=== PATIENT | female | born 1995 | race Caucasian/White ===

== ENCOUNTER → 2022-06-25 20:33 | Outpatient (ROUT) | payer OTHER, SELFPAY ==
[2022-06-25 21:16] LABS: HCG Quantitative /Beta subunit 7866.1 mIU/mL
== END ==
PROVIDERS: Visit Provider Advanced Practice Midwife
DX: N91.2 Amenorrhea, unspecified (principal)
CPT/HCPCS: 84702

== ENCOUNTER → 2023-01-13 07:35 | Outpatient (CLI) | payer OTHER, SELFPAY ==
--- NOTE | 2023-01-13 | DI.US.S_ITS ---
PROCEDURE: US OB >= 14 WEEKS FETUS INDICATIONS: 20 WEEK ANATOMY OUTSIDE/PRIOR DATING DATA: Last menstrual period (LMP): 08/23/2022. LMP-based estimated date of delivery (VIDAL): 05/30/2023 First dating scan (date and location): 01/13/2023. Estimated date of delivery (VIDAL) from first dating scan: 05/29/2023. TECHNIQUE: Real-time scanning was performed of the fetus, with image documentation and biometric measurements. COMPARISON: None. FINDINGS: General: A single living intrauterine gestation is present. Presentation: Vertex. Placenta: Placental position is anterior , without previa. Amniotic fluid index: 11.9 cm, normal range is 5-24 cm. Single deepest vertical pocket is 3.8 cm. heart rate: 141 beats per minute. Maternal cervical canal: 4.6 cm long. Normal lower limit is 2.5 cm. biometrics: Biparietal diameter: 4.9 centimeters, 20 weeks and 5 days Head circumference: 17.7 centimeters, 20 weeks and 1 day Abdominal circumference: 16 centimeters, 21 weeks and 1 day Femur length: 3.3 centimeters, 20 weeks and 2 days Clinically estimated gestational age: 20 weeks and 3 days Composite gestational age from present scan: 20 Weeks and 4 days Estimated weight and percentile: 370 grams, 60th percentile. Anatomic survey: Neuro: Ventricles are non-dilated at less than 10 mm. Cisterna magna is normal at 3-11 mm. Cerebellum is normal in size and morphology. Nuchal skin fold: Normal at less than 6 mm between 14-21 weeks gestational age. Face: Not well seen Spine: No evidence for spina bifida. Heart: 4-chambered heart is present. Outflow tracts are not well seen. Diaphragm: Diaphragm is intact. Stomach: Left-sided stomach is present. Kidneys: No hydronephrosis. Normal is less than 5 mm in 2nd trimester, less than 7 mm in 3rd trimester. Cord: 3-vessel cord has orthotopic insertion. Bladder: Normal in size. Extremities: All 4 extremities identified. IMPRESSION: Outflow tracts of the heart and facial structures are not well seen. Otherwise unremarkable anatomic survey. Recommend follow-up survey. Living intrauterine gestation at 20 weeks and 3 days, measuring at the 60th percentile. Dictated by: Etienne Childress M.D. on 01/13/2023 at 12:35 Approved by: Etienne Childress M.D. on 01/13/2023 at 12:40
== END ==
PROVIDERS: Referring Provider Nurse Practitioner Obstetrics & Gynecology; Visit Provider Nurse Practitioner Obstetrics & Gynecology
DX: Z34.92 Encounter for supervision of normal pregnancy, unspecified, second trimester (principal); Z3A.20 20 weeks gestation of pregnancy
CPT/HCPCS: 76811

== ENCOUNTER → 2023-01-21 16:20 | Outpatient (CLI) | payer OTHER, SELFPAY ==
--- NOTE | 2023-01-21 | DI.US.S_ITS ---
PROCEDURE: US OB FOLLOW UP INDICATIONS: FOLLOW UP ANATOMY SCAN OUTSIDE/PRIOR DATING DATA: Last menstrual period (LMP): August 23, 2022. LMP-based estimated date of delivery (VIDAL): May 30, 2023. First dating scan (date and location): January 13, 2023. Estimated date of delivery (VIDAL) from first dating scan: May 29, 2023. The calculations are made using the clinical VIDAL of May 30, 2023. TECHNIQUE: Real-time scanning was performed of the fetus, with image documentation. Endovaginal scanning: Not performed COMPARISON: [facility], OB >= 14 WEEKS FETUS, 01/13/2023, 7:53. FINDINGS: A single living intrauterine gestation is present. Presentation: Transverse maternal left. Placenta: Placental position is anterior right, without previa. Amniotic fluid index: 11.7 cm, normal range is 5-24 cm. Single deepest vertical pocket is 3.7 cm. heart rate: 153 beats per minute. Maternal cervical canal: 4.9 cm long. Normal lower limit is 2.5 cm. Clinically estimated gestational age: 21 weeks and 4 days Other: Re-evaluation of the ventricular outflow tracts, nose and lips, and facial profile are within normal limits. IMPRESSION: Single living intrauterine gestation with estimated gestational age of approximately 21 weeks and 4 days. Normal sonographic appearance of the ventricular outflow tracts, nose and lips, and facial profile. Dictated by: Evaristo Austin M.D. on 01/22/2023 at 10:42 Approved by: Evaristo Austin M.D. on 01/22/2023 at 10:48
== END ==
PROVIDERS: Referring Provider Advanced Practice Midwife; Visit Provider Advanced Practice Midwife
DX: Z3A.21 21 weeks gestation of pregnancy; Z36.2 Encounter for other antenatal screening follow-up
CPT/HCPCS: 76816

== ENCOUNTER → 2023-03-10 16:33 | Outpatient (CLI) | payer OTHER, SELFPAY ==
[2023-03-10 17:57] LABS: Hematocrit 39.5 % (36-46); Mean Corpuscular HGB Conc 35.4 % (30-36); Mean Corpuscular Hemoglobin 32.9 PG (26-34); Platelet Count 198 X10^3/uL (150-400); Red Blood Cell Count 4.24 X10^6/uL (4.0-5.2); White Blood Cell Count 10.1 X10^3/uL (4.5-11.0)
== END ==
PROVIDERS: Referring Provider Nurse Practitioner Obstetrics & Gynecology; Visit Provider Nurse Practitioner Obstetrics & Gynecology
DX: Z34.90 Encounter for supervision of normal pregnancy, unspecified, unspecified trimester (principal); Z3A.28 28 weeks gestation of pregnancy
CPT/HCPCS: 36415; 85027

== ENCOUNTER 2023-05-21 16:16 | Inpatient (IN) | payer OTHER, SELFPAY ==
--- NOTE | 2023-05-21 16:39 | PM.OBHP.1 ---
OB HPI Date/Time Date of admission: 05/21/23 Date Patient Seen: 05/21/23 Time Patient Seen: 16:39 History of Present Condition Chief complaint: LABOR : 2 Para: 0 Estimated Date of Delivery: 05/30/23 Estimated Gestational Age (weeks): 38.5 Narrative: Ellie Ríos is a 27 year old female @ 38wks 5 days by LMP concordant with 12wk US who presents for evaluation of PROM. Awoke from a nap at 1515 with leaking fluid that has continued to leak since. Some pink in the fluid, otherwise clear. +FM since ROM. No cramping. Uncomplicated PN care w/ CNMs. Planning and epidural. is deployed to [facility], parents to provide support. Patient arrived on unit actively leaking clear fluid, pants soaked. History of Present care: good care, initiated at week # (12), number of visits (8) and pounds weight gain (48) Dating criteria: LMP confirmed by 1st trimester US Ultrasounds: normal mid trimester US Obstetrical complications: none Medical complications: none Preadmission Labs Blood type: A (+) positive -: Antibody screen: negative, Cystic fibrosis screen: negative, GBS status: negative, HBsAG: negative, HIV: negative and RPR/VDLR: negative -: Chlamydia screen: not detected and Gonorrhea screen: not detected -: Rubella: immune and Varicella: immune HCT: 39.5 HCAB: negative PAP: Normal Cell-free DNA: Negative 1 hr GTT: 104 Prior (ies) History: SAB x1 Evaluation Evaluation Baseline heart rate: 140 Variability: Moderate (11-25) monitor accelerations: Present Monitor Decelerations: Absent Contraction Frequency (minutes): 0 Comments: CE deferred, gross ROM (clear) PFSH Medical History (Updated 05/21/23 @ 16:55 by Jazmine Price CNM) Anxiety Family History (Updated 05/21/23 @ 16:55 by Jazmine Price CNM) Mother Depression Social History Smoking Status: Never smoker Meds Home Medications and Allergies Home Medications Medication Instructions Recorded Confirmed Type No Known Home Medications 05/21/23 05/21/23 History Allergies Allergy/AdvReac Type Severity Reaction Status Date / Time No Known Drug Allergies Allergy Verified 05/21/23 17:14 Review of Systems Review of Systems ROS: Yes All systems reviewed with the patient and are negative except as otherwise documented OB Exam Vital signs Blood Pressure: 120/61 Pulse Rate: 108 Temperature: 96.6 F Resp Effort & Inspection: normal respiratory effort and able to speak in complete sentences Auscultation: clear to auscultation bilaterally Cardio Rate: regular rate Rhythm: regular rhythm Heart Sounds: S1 normal and S2 normal Presentation: vertex Objective Labs 05/21/23 17:25 Assessment and Plan Assessment and Plan Assessment and Plan narrative: A: Term nullipara Not in labor PROM x 2 hours without sx of infection No indication for GBS prophylaxis Cat I FHR P: Counseled on options for active vs expectant management of PROM and patient elects active management. Admit, routine orders with pitocin. Labor support PRN. Epidural when requested. CE after 2 hours of strong contractions. Reassessin 4-6 hours or sooner, PRN.
[2023-05-21 16:59] VITALS: BP 120/61
[2023-05-21 17:13] VITALS: PULSE 108; TEMP 35.9
[2023-05-21 17:40] LABS: Add Manual Diff / Slide Review NO; Basophils Absolute Auto 100 /uL (0-100); Basophils Percent Auto 0.7 % (0-2); Eosinophils Absolute Auto 0 /uL (0-450); Eosinophils Percent Auto 0.6 % (2-4); Hematocrit 38.9 % (36-46); Hemoglobin 13.3 g/dL (12.0-16.0); Lymphocytes Absolute Auto 1500 /uL (1100-4500); Lymphocytes Percent Auto 17.3 % (25-40); Mean Corpuscular HGB Conc 34.3 % (30-36); Mean Corpuscular Hemoglobin 32.2 PG (26-34); Mean Corpuscular Volume 93.8 fL (80-100); Monocytes Absolute Auto 500 /uL (0-900); Monocytes Percent Auto 6.2 % (3-14); Neutrophils Absolute Auto 6400 /uL (1500-7000); Neutrophils Percent Auto 75.2 % (50-75); Platelet Count 193 X10^3/uL (150-400); Red Blood Cell Count 4.15 X10^6/uL (4.0-5.2); Red Cell Distribution Width 14.8 % (11.6-14.8); White Blood Cell Count 8.5 X10^3/uL (4.5-11.0)
[2023-05-21 19:19] VITALS: BP 120/77
[2023-05-21] MEDS: LACTATED RINGERS 1,000 ML 100 ML IV (19:59)
[2023-05-21] MEDS: OXYTOCIN PREMIX 30 UNIT/500 ML PLAST..BAG IV (20:01)
--- NOTE | 2023-05-21 22:33 | P.PNOB_ITS ---
Date/Time Date Patient Seen: 05/21/23 Time Patient Seen: 22:34 Pain Control Pain control: tolerating well Comments: Sitting up in bed doing her homework. Continues to leak clear fluid. Pitocin was delayed until medical laboratory specialist allowed initiation at 1999. Now feeling mild, regular contractions described as period like. was able o book flight arriving at [place] at 5pm tomorrow. Her mother arrives at 3-4 pm tomorrow. VS: BP 130/84, HR 96, T 35.9C Temporal Pelvic Exam Amniotic membrane status: Leaking (clear) Comments: CE deferred until more active labor Cephalic presentation was re-confirmed by bedside ultrasound prior to pitocin initiation. Contractions Monitor mode: External Pitocin rate (mU/min): 8 Contraction frequency (min): 2 Contraction duration (min): 1 Contraction pattern: Regular Contraction intensity: Mild Status status: Category l Heart Rate Baseline: 140 Monitor Accelerations: Present Monitor Decelerations: Absent Assessment and Plan Assessment: other (PROM x 7 hours without sx of infection) Comments: Continue active management of PROM. Pitocin titration to adequate contractions. Labor support, PRN. Epidural when requested. CE after 2 hours of strong contractions. Reassess in 4-6 hours or sooner, PRN.
[2023-05-22] MEDS: fentaNYL 100 MCG/2 ML INJ IV (01:06)
--- NOTE | 2023-05-22 02:53 | PM.ANES.PR ---
Operative Date/Time/Diagnoses Date of procedure: 05/22/23 Time of procedure: 02:23 Pre-op diagnosis: Labor pain Post-op diagnosis: same Note requesting labor epidural for labor pain
--- NOTE | 2023-05-22 02:54 | PM.AN.REGBLK ---
Regional Block Pre-procedure Procedure: Continuous Lumbar Epidural for L&D Attending OB provider: Jazmine Price PMH/ROS narrative: requesting labor epidural for labor pain Hx: No personal or family history of anesthesia problems. Exam narrative: Mallampati 2, good neck ROM ASA Class: II Labs: Hct 38.9 % (36-46) 05/21/23 17:25 Plt Count 193 X10^3/uL (150-400) 05/21/23 17:25 Medications: Current Medications Generic Name Dose Route Start Last Admin Trade Name Freq PRN Reason Stop Dose Admin Calcium Carbonate 1,000 mg 05/21/23 16:32 Calcium Carbonate 500 Mg Tab PO Q4HR PRN Dyspepsia Carboprost Tromethamine 250 mcg 05/21/23 16:32 Carboprost 250 Mcg/Ml Ampul IM Q90M PRN Bleeding Fentanyl 100 mcg 05/21/23 16:32 05/22/23 01:06 Fentanyl 100 Mcg/2 Ml Inj IV 50 mcg Q1H PRN Administration Pain, Severe (7-10) Oxytocin/Lactated Ringer's 30 unit in 500 mls @ 200 mls/hr 05/21/23 16:32 Oxytocin Premix IV CONT PRN Bleeding Protocol Tranexamic Acid 1,000 mg/ 100 mls @ 200 mls/hr 05/21/23 16:32 Sodium Chloride IV NOW PRN Bleeding Oxytocin/Lactated Ringer's 30 unit in 500 mls @ 2 mls/hr 05/21/23 16:45 05/21/23 20:01 Oxytocin Premix IV 2 milliunit/min TITRATE GEOVANNA 2 mls/hr Administration Protocol 2 MILLIUNIT/MIN Lactated Ringer's 1,000 mls @ 100 mls/hr 05/21/23 16:45 05/21/23 19:59 Lactated Ringers IV 100 mls/hr CONT GEOVANNA Administration Lidocaine HCl 20 ml 05/21/23 16:32 Lidocaine 1% 20 Ml INJ INTRA-OP PRN Post Delivery Methylergonovine Maleate 0.2 mg 05/21/23 16:32 Methylergonovine 0.2 Mg Tablet PO Q6HR PRN Heavy Bleeding Methylergonovine Maleate 0.2 mg 05/21/23 16:32 Methylergonovine 0.2 Mg/Ml Vial IM NOW PRN Bleeding Misoprostol 800 mcg 05/21/23 16:32 Misoprostol 200 Mcg Tablet OH NOW PRN Bleeding Misoprostol 400 mcg 05/21/23 16:32 Misoprostol 200 Mcg Tablet SL NOW PRN Bleeding Naloxone HCl 0.2 mg 05/21/23 16:32 Naloxone 0.4 Mg/Ml Vial IV Q2MIN PRN Opiate Reversal Ondansetron HCl 4 mg 05/21/23 16:32 Ondansetron 4 Mg/2 Ml Inj IV Q4HR PRN Nausea And Vomiting Oxytocin 10 unit 05/21/23 16:32 Oxytocin 10 Unit/Ml Vial IM NOW PRN Bleeding Allergies: Allergies Allergy/AdvReac Type Severity Reaction Status Date / Time No Known Drug Allergies Allergy Verified 05/21/23 17:14 Procedure Insertion date: 05/22/23 Insertion time: 02:27 Prep/Local: 1% lidocaine (Chloroprep, + sterile gloves, drape and technique) Interspace: L4-5 Patient position: sitting Needle: 18 gauge Hustead Loss of resistance with: saline JOY at (cm): 6 Catheter placed at SKIN (cm): 10 Catheter in SPACE (cm): 4 Sensory level: T10 Insertion: No CSF, No Blood, No Paresthesia with insertion, No Paresthesia with injection and No Test dose reaction Initial Medications TEST DOSE time: 02:33 TEST DOSE: 1.5% lidocaine with epinephrine 1:200k (mL): 5 BOLUS DOSE time: 02:34 BOLUS DOSE (mL): 5 BOLUS DOSE med: other (2% Lidocaine) Infusion INFUSION: 0.125% bupivacaine and with fentanyl 2 mcg/mL Initial rate (mL/hr): 10 Subsequent interventions: 03:45- Pt c/o pain in right lower quadrant, epidural remains at 10cm @ skin. Epidural bolus given ( 100mcg fentanyl + 6 cc 0.25% Bupivacaine); rate also inc to 12 ml/hr Post-procedure Anesthesia time START: 02:27 Anesthesia time END: 07:58 Post-procedure Anesthesia Assessment: Yes CV function: HR/BP stable, Yes Resp function: RR/sat/airway adequate, Yes Post-op hydration adequate, Yes Pain control adequate, Yes Nausea & vomiting absent, Yes Temperature > 36 C and Yes Mental status appropriate
--- NOTE | 2023-05-22 03:13 | PM.OBPNLAB ---
Date/Time Date Patient Seen: 05/22/23 Time Patient Seen: 03:13 Pain Control Pain control: epidural Comments: Contractions became stronger around 11pm. She requested and received an epidural around 2:30pm. Epidural is unequal with relief greater on the left. Continues to leak clear fluid. VS: BP 133/63, HR 105, T 36.1C Temporal Pelvic Exam Dilation (cm): 2 Effacement (%): 80 station: -2 Amniotic membrane status: Leaking (clear) Contractions Monitor mode: External Pitocin rate (mU/min): 10 Contraction frequency (min): 2 Contraction pattern: Regular Contraction intensity: Mild Status status: Category l Heart Rate Baseline: 135 Monitor Accelerations: Present Monitor Decelerations: Absent Assessment and Plan Assessment: other (PROM x 12 hours without sx of infection) Plan: continuous present management Comments: Reassess in 4 hours or sooner, PRN.
[2023-05-22] MEDS: FENT 2MCG/ML BUPIV 0.1% EPI 200 MCG/100 ML PLAST..BAG 6 MCG EPIDURAL (03:43)
[2023-05-22] MEDS: LACTATED RINGERS 1,000 ML 100 ML IV (03:44)
--- NOTE | 2023-05-22 07:27 | PM.OBPNLAB ---
Date/Time Date Patient Seen: 05/22/23 Time Patient Seen: 07:15 Pain Control Pain control: epidural Comments: Ellie is resting on her R side, starting to feel more contraction pain in lower abdomen bilaterally. She was able to get good sleep in the last few hours. VS: BP: 129/68 bpm, HR: 108, Sp02: 99%, T: 36.5C Pelvic Exam Dilation (cm): 10 Effacement (%): 100 station: +1 Amniotic membrane status: Leaking (clear) Contractions Monitor mode: External Pitocin rate (mU/min): 12 Contraction frequency (min): 2 Contraction duration (min): 1 Contraction pattern: Regular Contraction intensity: Strong/Firm Status status: Category l Heart Rate Baseline: 135 Monitor Accelerations: Present Monitor Decelerations: Absent Monitor Variability: Moderate Assessment and Plan Assessment: active labor and other (augmentation on-going) Comments: Begin second stage Anticipate NSVB
--- NOTE | 2023-05-22 08:41 | P.PCNOB_ITS ---
Events: Labor Augmentation and Premature Rupture Membrane Labor & Delivery Delivery date: 05/22/23 Delivery augmentation: pitocin Delivery monitor: external FHT and external uterine Route of delivery: Episiotomy description: None L&D Laceration Description: Perineal - 2nd Degree Delivery repair: chromic Quantitative Blood Loss: 100 Anesthesia Type: Epidural Narrative: Ellie was found to be C/C/+1 at 0715, providing effective pain relief. She pu shed for a short second stage; FHR was primarily Cat 1 throughout, Pitocin for augmentation continued at 12mu. With coaching from SNM, CNM and RN, and great maternal effort, head delivered and restituted to ROGER. With the next push the anterior shoulder delivered easily and SNM delivered , delivered through one loose nuchal cord. Vigorous boy Garcia was placed on maternal abdomen where he was dried and stimulated with warm blankets. Apgars 8/9. Remainder of 30 units Pitocin in 500mL LR administered for AMSTL. Cord was double clamped and cut by CNM after pulsation had stopped. Cord blood collected per unit policy. Perineum was inspected and a small second degree perineal laceration was noted and repaired in the usual fashion with 3-0 chromic suture under adequate epidural anesthesia. Following repair, gentle cord traction and a single maternal pushed delivered an apparently intact placenta, Anastasia, with membranes and a 3 vessel cord. QBL 100. Mom and baby skin to skin and stable when I left the room. initiated in first hour of life. [place] Baby 1: Infant gender: Male Presentation: vertex Position: Left Occiput Anterior Placenta delivery description: Spontaneous Cord Vessel Description: 3 Vessels score (1 min): 8 score (5 min): 9 weight: 3.378 kg Plan for aftercare: Routine care
[2023-05-22] MEDS: KETOROLAC 30 MG/ML VIAL IV (10:39)
[2023-05-22] MEDS: IBUPROFEN 600 MG TABLET PO (17:53)
[2023-05-22] MEDS: ACETAMINOPHEN 325 MG TABLET 650 MG PO (21:41)
[2023-05-23] MEDS: IBUPROFEN 600 MG TABLET PO ×2 (05:47)
--- NOTE | 2023-05-23 09:32 | PM.OBDS.1 ---
Discharge Providers Provider Date of admission: 05/21/23 16:16 Discharge Date: 05/23/23 Primary care physician: Jessica HOLLEY Provider Consults: 05/23/23 08:37 Consult to Rn Wound Care Routine Comment: Discharge provider: Jazmine Price CNM Summary Hospital Course Date Patient Seen: 05/23/23 Time Patient Seen: 09:32 Diagnoses: O70.1 Hospital Course: PPD1: Stable s/p NSVB w/ 2nd degree perineal laceration. Voiding, ambulating and independently. Tolerating a general diet. Passed a BM this morning with minimal difficulty. Pain is well controlled with PO medication. Nipples are tender, but no sores. arrived from [facility] [place] and is present and supportive. Peripartum Data Infant Delivery Method: Natural Vaginal Laceration Description: Perineal - 2nd Degree Episiotomy description: None [place] 1: Gender: Male Disposition of : home Discharge Diagnosis (1) Del w/ 2 deg lac-unsp: Status: Acute Status at Discharge Cognitive/behavioral status at discharge: oriented and calm Functional status at discharge: independent ambulation Overall status at discharge: patient is progressing back to baseline Time Spent with Patient Time attestation: Total time spent providing and/or coordinating discharge services: Objective Labs 05/21/23 17:25 Exam Vital Signs (past 8 hours): HR 106/74mmHg, HR 84bpm, RR 16/min, T 98.9F Axillary Other: Fundus firm @ U-1, lochia light, no clots. Perineum well approximated with minimal edema. Discharge Plan Discharge Plan Patient Disposition: Home Discharge orders & Medications Prescriptions: New ibuprofen 600 mg Tablet 600 mg PO Q6HR PRN (Reason: Pain, Mild (1-3)) 14 Days Qty: 60 0RF Follow up/Referrals: Provider,Jessica HOLLEY [Primary Care Provider] - Jazmine Price CNM [[employer] Operator] - (Follow-up phone call at 2wks 06/05/23 @ 0945 Follow-up in office at 6wks 07/03/23 @ 1015) Diet/Activity/Treatments Diet: Diet as Tolerated and Regular Activity: bed rest x 2 weeks. pelvic rest x 6 weeks. Skin/Wound/Dressing Care Report to your healthcare provider any signs of infection, such as:: chills, fever, increased pain, unusual drainage and unusual redness Visit Report/Discharge Packet Instructions: DI for Depression Stand Alone Forms: Patient Portal/API, Stroke Signs & Symptoms Discharge Data Primary Care Provider: ProviderJessica
[2023-05-23 11:02] VITALS: BP 106/74; PULSE 84; RESP 16; TEMP 37.2
== END 2023-05-23 10:49 | disposition home or self-care (01) | DRG 807 ==
PROVIDERS: Admitting Provider Nurse Practitioner Obstetrics & Gynecology; Referring Provider Nurse Practitioner Obstetrics & Gynecology; Visit Provider Nurse Practitioner Obstetrics & Gynecology
DX: O42.02 Full-term premature rupture of membranes, onset of labor within 24 hours of rupture (principal); Z37.0 Single live birth; O70.1 Second degree perineal laceration during delivery; Z3A.38 38 weeks gestation of pregnancy
CPT/HCPCS: 36415; 59050; 85025; 86850; 86900; 86901; G0379; J1885; J2590; J3010

== ENCOUNTER → 2024-06-24 11:35 | Outpatient (CLI) | payer OTHER, SELFPAY ==
--- NOTE | 2024-06-24 11:36 | DI.MRI.S_ITS ---
PROCEDURE: MR LUMBAR SPINE WO CON INDICATIONS: LOW BACK PAIN TECHNIQUE: Noncontrast sagittal T1 spin echo and T2 fast echo, sagittal STIR, and T2 fast spin echo through the lumbar spine. In cases with scoliosis, additional coronal T2 fast spin echo may be performed. COMPARISON: None. FINDINGS: Image quality: Excellent. Alignment and Curvature: There is normal bony alignment. Bone Marrow: Marrow is of normal overall signal. No acute vertebral body compression fractures. Spinal Cord: Conus medullaris terminates at the L2 level. Visualized cord demonstrates normal signal and size. Paraspinous Soft Tissues: No paravertebral masses. T12-L1: Normal appearance. L1-L2: Normal appearance. L2-L3: Normal appearance. L3-L4: Normal appearance. L4-L5: Normal appearance. L5-S1: Disc desiccation with small central disc protrusion effacing the central thecal sac. Annular fissure present. No significant central spinal or neural foraminal stenosis. IMPRESSION: Small Disc herniation (protrusion) with annular tear L5-S1. No significant central spinal or neural foraminal stenosis. Otherwise unremarkable lumbar spine MRI without contrast. Dictated by: Steven Mendoza M.D. on 06/24/2024 at 13:18 Approved by: Steven Mendoza M.D. on 06/24/2024 at 13:22
== END ==
PROVIDERS: Referring Provider Nurse Practitioner Family; Visit Provider Nurse Practitioner Family
DX: M51.27 Other intervertebral disc displacement, lumbosacral region (principal); M51.370 Other intervertebral disc degeneration, lumbosacral region with discogenic back pain only; R20.2 Paresthesia of skin
CPT/HCPCS: 72148

== ENCOUNTER → 2025-04-19 08:00 | Outpatient (CLI) | payer OTHER, SELFPAY ==
--- NOTE | 2025-04-19 08:03 | DI.RAD.S_ITS ---
PROCEDURE: XR CHEST 2V INDICATIONS: PRODUCTIVE COUGH TECHNIQUE: 2 views of the chest were acquired. COMPARISON: None. FINDINGS: Heart, mediastinum and pulmonary vascular: Heart is normal in size and configuration. Mediastinum is unremarkable. Pulmonary vascular is normal. Lungs: Clear Pleural spaces: Normal-no effusions or pneumothorax. IMPRESSION: Normal chest. Dictated by: Heladio Ruelas M.D. on 04/19/2025 at 13:35 Approved by: Heladio Ruelas M.D. on 04/19/2025 at 13:36
== END ==
PROVIDERS: Referring Provider Physician Assistant Medical; Visit Provider Physician Assistant Medical
DX: J01.00 Acute maxillary sinusitis, unspecified (principal); R05.8 Other specified cough
CPT/HCPCS: 71046

== ENCOUNTER 2025-05-18 12:15 | Day surgery (SDC) | payer OTHER, SELFPAY ==
--- NOTE | 2025-05-18 | PATH_ITS ---
[facility] Accession Number: [id number] No. of containers..02 Tissue . 01 Material submitted: . PART A: stomach - STOMACH, ANTRAL PART B: esophagus - ESOPHAGEAL . 01 Diagnosis: Part A: STOMACH, ANTRAL: Gastric mucosa with mild chronic inflammation. No Helicobacter organisms identified. No intestinal metaplasia, dysplasia, or malignancy identified. . Part B: ESOPHAGEAL: Squamous mucosa with markedly increased intraepithelial eosinophils (up to 80 per high power field), compatible with eosinophilic esophagitis. See comment. . Specimen Comments: The features are consistent with eosinophilic esophagitis in the right clinical setting. [facility] 05/29/2025 1626 Local . 01 Electronically signed: . Eddi Hollins MD, Pathologist NPI- [id number] . 01 Gross description: . A. Received in formalin with two identifiers and antral biopsy, is a single archibald soft tissue fragment 0.5 cm in greatest dimension. Submitted entirely in cassette A1. . B. Received in formalin with two identifiers and esophagus biopsy, are two archibald soft tissue fragments 0.1 to 0.3 cm in greatest dimension. Submitted entirely in cassette B1. ([id number]) /[facility] 05/29/2025 1626 Local . 01 Microscopic: . Part A: ANTRAL: An immunohistochemical stain was performed to evaluate for Helicobacter organisms and is negative. The control stains appropriately. * This test was developed and the performance characteristics were validated by [facility]. It has not been cleared or approved by the Food and Drug Administration. . Part B: ESOPHAGEAL: An ABPAS stain was performed to evaluate for fungal organisms and is negative. The control stains appropriately. . 01 Pathologist provided ICD-10: K20.0, K29.50 . 01 CPT . 425781, 188448, [id number], [id number] Specimen Comment: A courtesy copy of this report has been sent to [facility] Pathology Performed at: [address] [address], [place], [place] [id number] MD Eddi Hollins MD Phone: [phone]
--- NOTE | 2025-05-18 06:47 | PM.PREOP ---
Pre-operative Note Interval Note History & Physical reviewed/Exam performed by Physician: Yes Changes to H&P: No ASA Class (for procedural sedation): I
[2025-05-18 12:47] VITALS: BP 113/81; PULSE 89; RESP 16; TEMP 36.2; O2SAT 98
[2025-05-18] MEDS: LACTATED RINGERS 1,000 ML 42 ML IV (13:06)
--- NOTE | 2025-05-18 13:08 | P.OP.EGD_ITS ---
Operative Date/Time/Diagnoses Date of procedure: 05/18/25 Time of procedure: 13:32 Pre-op diagnosis: GERD Post-op diagnosis: other (small hiatal hernia, minimal antral gastritis) Procedure & Clinicians Study performed: EGD with biopsy Same procedure(s) as scheduled: Yes Indications: 29yo F, c/o GERD Surgeon: Brandon Barajas Anesthesia Type: MAC +/- Procedure Notes SCOAP/Timeout: Performed Procedure in detail: EGD Informed consent was obtained. The procedure, its risks, benefits, and alternatives were discussed. Patient understood and agreed to proceed. The pa tient was placed in the left lateral decubitus position with head elevated. Sedation given per anesthesia. The video endoscope was inserted into the oropharynx and guided under direct vision into the esophagus, stomach, and duodenum which were carefully examined. The scope was retroflexed to examine the hiatus and gastroesophageal junction. Antral biopsies were obtained for Helicobacter pylori. The patient tolerated the procedure very well. There were no apparent complications. Significant EGD findings: Z-line noted at: 36cm Small 2cm hiatal hernia without esophagitis, random distal esophageal biopsies taken, hiatal hernia only evident on retroflex view Minimal antral gastritis Duodenum normal No ulcers in esophagus, stomach or duodenum Findings: gastritis and hiatal hernia Specimen(s): other (antral biopsy) Estimated Blood Loss: 5 Complications: none Impression: Small hiatal hernia without esophagitis Minimal antral gastritis Post-procedure Plan for aftercare: PACU then floor Follow up: as needed Disposition: PACU
[2025-05-18 13:33] VITALS: BP 116/72; PULSE 82; RESP 16; TEMP 36.2; O2SAT 97
[2025-05-18 13:38] VITALS: BP 115/70; PULSE 85; RESP 14; O2SAT 97
[2025-05-18 13:53] VITALS: BP 102/66; PULSE 67; RESP 14; O2SAT 98
== END 2025-05-18 13:58 | disposition home or self-care (01) ==
PROVIDERS: Referring Provider Surgery; Visit Provider Surgery
PROC: 0DJ08ZZ Inspection of Upper Intestinal Tract, Via Natural or Artificial Opening Endoscopic (ICD-10-PCS; CPT 43239; principal; 2025-05-18 13:30)
DX: K21.9 Gastro-esophageal reflux disease without esophagitis (principal); K29.50 Unspecified chronic gastritis without bleeding; K44.9 Diaphragmatic hernia without obstruction or gangrene; G47.33 Obstructive sleep apnea (adult) (pediatric); E07.9 Disorder of thyroid, unspecified
CPT/HCPCS: 43239; J2704; J3010; J7120